=== PATIENT | male | born 1965 | race Caucasian/White ===

== ENCOUNTER 2017-11-11 14:20 | Emergency (ER) | payer BC ==
[~2017-11-11] VITALS: Ht 182.9 cm; Wt 81.6 kg
[2017-11-11 15:51] LABS: BILIRUBIN,URINE NEGATIVE (NEGATIVE); CLARITY,URINE CLEAR (CLEAR); COLOR,URINE YELLOW (YELLOW); KETONES,URINE NEGATIVE (NEGATIVE); LEUKOCYTE ESTERASE ,URINE NEGATIVE (NEGATIVE); NITRITE,URINE NEGATIVE (NEGATIVE); PROTEIN,URINE DIPSTICK NEGATIVE (NEGATIVE); URINE UROBILINOGEN 0.2 mg/dL (0.2 - 1)
[2017-11-11 16:10] LABS: BACTERIA,URINE FEW /HPF; EPITHELIAL CELLS,URINE RARE /LPF; RBC,URINE 0-5 /HPF (0-5)
--- NOTE | 2017-11-11 16:58 | Diagnostic Imaging Report ---
PROCEDURE:TESTICULAR ULTRASOUND and DUPLEX ULTRASOUND COMPARISON:None. INDICATIONS:LEFT UPPER TESTICULAR MASS TECHNIQUE: Cervantes-scale and color doppler images of the testicles and scrotal contents were obtained. Duplex imaging with spectral waveform analysis was performed of the testicular arteries and veins. FINDINGS: RIGHT SCROTUM: Testicle: 4.3 x 2.9 x 4.2 cm. Epididymal head: 0.9 x 1.5 x 1.8 cm. 1.1 x 0.5 x 0.9 cm and 0.9 x 0.7 x 0.8 cm right epididymal head cyst. Hydrocele: None. Varicocele: None. LEFT SCROTUM: Testicle: 3.4 x 3.6 x 4.4 cm. Epididymal head: 2.9 x 2.4 x 4.2 cm. 2.5 x 2.3 x 2.7 cm left epididymal head cysts/spermatocele, previously 2.0 x 1.5 x 2.6 cm. 2.1 x 1.8 x 2.1 cm left epididymal head cyst or spermatocele. 1.3 x 0.8 x 1.6 cm left epididymal body cyst/spermatocele. Hydrocele: None. Varicocele: None. CONCLUSION: Bilateral epididymal cysts and spermatoceles. Otherwise unremarkable ultrasound. Dictated by: Arnold Mcmillan M.D. on 11/11/2017 at 16:58 Electronically approved by: Arnold Mcmillan M.D. on 11/11/2017 at 16:58
--- NOTE | 2017-11-11 16:58 | Diagnostic Imaging Report ---
PROCEDURE:TESTICULAR DOPPLER ULTRASOUND COMPARISON:None. INDICATIONS:LEFT UPPER TESTICULAR MASS TECHNIQUE: Cervantes-scale and color doppler images of the testicles and scrotal contents were obtained. Duplex imaging with spectral waveform analysis was performed of the testicular arteries and veins. FINDINGS: Please see testicular ultrasound from the same day for combined dictation. CONCLUSION: Please see testicular ultrasound from the same day for combined dictation. Dictated by: Arnold Mcmillan M.D. on 11/11/2017 at 16:59 Electronically approved by: Arnold Mcmillan M.D. on 11/11/2017 at 16:59
== END 2017-11-11 20:13 | disposition home or self-care (01) ==
LOC: ER 14:20
DX: N50.89 Other specified disorders of the male genital organs (principal); N50.3 Cyst of epididymis; N43.40 Spermatocele of epididymis, unspecified
CPT/HCPCS: 76870; 81001; 93976; 99284

== ENCOUNTER → 2019-10-24 | Outpatient (CLI) | payer BC ==
[~2019-10-24] MED LIST: IOPAMIDOL 370 MG/ML 200 ML INFUS..BTL INJ ONE; SODIUM CHLORIDE 0.9% 250ML 250 ML ONE
--- NOTE | 2019-10-24 17:13 | Diagnostic Imaging Report ---
CT of the abdomen and pelvis, without and with contrast. History: Microscopic hematuria. Comparison: None available. Technique: Multidetector CT scanning of the abdomen and pelvis was performed from the level of the lung bases to the inferior pubic rami before and after intravenous administration of contrast according to the CT or protocol. Coronal, sagittal, and three-dimensional reformations were obtained. RADIATION DOSE: Total DLP: 1146.14 mGy*cm Dose modulation, iterative reconstruction, and/or weight based adjustment of the mA/kV was utilized to reduce the radiation dose to as low as reasonably achievable. FINDINGS: The visualized lung bases demonstrate no significant abnormalities. The imaged portion of the heart is unremarkable. The liver is normal in size and attenuation. A subcentimeter hypodensity is identified within the right hepatic lobe which is too small to definitively characterize. No other focal hepatic abnormality is identified. The gallbladder is unremarkable. There is no biliary ductal dilatation. There is a small hiatal hernia present. The stomach is otherwise unremarkable. The spleen, pancreas, and bilateral adrenal glands are unremarkable. The kidneys are normal in size and location and symmetrically enhance/excrete contrast material. There is no evidence for nephrolithiasis. There is a exophytic cyst identified arising off the inferior pole of the left kidney measuring up to 1.4 cm. There are additional subcentimeter hypodensities identified bilaterally which are to small to definitively characterize but likely represent cysts. There is no evidence for solid/enhancing mass. There is a single collecting system and ureter identified bilaterally. There is no evidence of a filling defect or other abnormality. The urinary bladder is unremarkable. The prostate demonstrates no significant abnormalities. The abdominal aorta is normal course and caliber with mild atherosclerotic calcifications. The IVC is unremarkable. The visualized loops of small large bowel demonstrate no evidence of obstruction or inflammation. There is no ascites or intraperitoneal free air. No abnormally enlarged lymph nodes are identified within the abdomen or pelvis. There is a small fat-containing umbilical hernia present. Small bilateral fat-containing inguinal hernias noted. The osseous structures demonstrate no evidence for acute fracture or destructive process. The extraperitoneal soft tissues are unremarkable. IMPRESSION: Unremarkable CT urogram without evidence for nephrolithiasis, hydronephrosis, solid renal mass, or other ureteral filling defect/abnormality. Small hiatal hernia. Signed by: Dr. Jorge L Britt MD on 10/24/2019 5:10 PM
== END ==
LOC: CT 13:57
PROVIDERS: ATTEND Urology
DX: R31.21 Asymptomatic microscopic hematuria (principal)
CPT/HCPCS: 74178; J7050; Q9967

== ENCOUNTER 2020-05-21 05:34 | Emergency (ER) | payer BC ==
[~2020-05-21] VITALS: Ht 182.9 cm; Wt 81.6 kg
--- NOTE | 2020-05-21 05:38 | Emergency Department Note ---
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 Complained of self limited R perioral numbness . . Historian: Patient Arrival Mode: Car Onset (how long ago): minute(s) (20) Location: R congregational Radiation: Reports non-radiation Severity: mild Onset quality: sudden Timing of current episode: constant Progression: partially resolved Chronicity: new Relieving factors: none Exacerbating factors: none Associated symptoms: Denies denies other symptoms, Denies confusion, Denies chest pain, Denies cough, Denies diaphoresis, Denies fever/chills, Denies headaches, Denies loss of appetite, Denies malaise, Denies nausea/vomiting, Denies rash, Denies seizure, Denies shortness of breath, Denies syncope, Denies weakness, Denies other Treatments prior to arrival: none (RUFUS FIGUEROA DO) Past Medical/Family History Physician Review I have reviewed the patient's past medical and family history. Any updates have been documented here. (RUFUS FIGUEROA DO) Past Medical History Recent Fever: No Clinical Suspicion of Infectio: No Past Medical History: None Past Surgical History: T&A (RUFUS FIGUEROA DO) Social History Smoking Cessation: Current some day smoker Counseling Performed: Yes Alcohol Use: None Any Illegal Drug Use: No (RUFUS FIGUEROA DO) Other Last Tetanus: UNKNOWN (RUFUS FIGUEROA DO) Review of Systems Review of Systems Constitutional: Reports no symptoms EENTM: Reports no symptoms Cardiovascular: Reports no symptoms Respiratory: Reports no symptoms Gastrointestinal: Reports no symptoms Genitourinary: Reports no symptoms Musculoskeletal: Reports no symptoms Integumentary: Reports no symptoms Neurological: Reports headache Psychological: Reports no symptoms Endocrine: Reports no symptoms Hematological/Lymphatic: Reports no symptoms (RUFUS FIGUEROA DO) Physical Exam Related Data Allergies: Coded Allergies: No Known Allergies (Unverified , 11/11/17) Vital signs reviewed: Yes (RUFUS FIGUEROA DO) Physical Exam CONSTITUTIONAL Constitutional: Present well-developed, Present well-nourished HENT HENT: Present normocephalic, Present atraumatic, Present oropharynx clear/moist, Present nose normal HENT L/R: Present left ext ear normal, Present right ext ear normal EYES Eyes: Reports PERRL, Reports conjunctivae normal NECK Neck: Present ROM normal PULMONARY Pulmonary: Present effort normal, Present breath sounds normal CARDIOVASCULAR Cardiovascular: Present regular rhythm, Present heart sounds normal, Present capillary refill normal, Present normal rate GASTROINTESTINAL Abdominal: Present soft, Present nontender, Present bowel sounds normal GENITOURINARY Genitourinary: Present exam deferred SKIN Skin: Present warm, Present dry MUSCULOSKELETAL Musculoskeletal: Present ROM normal NEUROLOGICAL Neurological: Present alert, Present oriented x 3, Present no gross motor or sensory deficits PSYCHOLOGICAL Psychological: Present mood/affect normal, Present judgement normal (RUFUS FIGUEROA DO) Assessment & Plan Medical Decision Making MDM diff dx : SAH, migraine, bells palsy, TIA, CVA (RUFUS FIGUEROA DO) MDM Ct head benign, labs benign. Symptoms are largely resolved. Doubt TIA or CVA. Doubt emergent process at this time. I discussed results patient as well as expected disease time course and management. They will follow up with their primary care provider or return to the emergency department for new or worsening symptoms. Patient's appropriate for discharge. Part of this note was dictated with Antoni and is subject to recognition errors. (RUBEN SIMPSON MD) Reassessment Reassessment time: 06:41 Reassessment Well appearing, NAD (RUBEN SIMPSON MD) Assessment & Plan Final Impression: (1) Headache (RUBEN SIMPSON MD) Depart Disposition: HOME, SELF-CARE RUFUS FIGUEROA DO May 21, 2020 05:38 RUBEN SIMPSON MD May 21, 2020 06:49
[2020-05-21] MEDS ORDERED: METHYLPREDNISOLONE SOD SUCC 125 MG/2ML VIAL IV STA (05:46)
[2020-05-21] MEDS ORDERED: KETOROLAC TROMETHAMINE 30 MG/ML VIAL IV STA (05:46)
[2020-05-21] MEDS ORDERED: SODIUM CHLORIDE 0.9% 1000ML 1,000 ML IV STA (05:46)
[2020-05-21] MEDS ORDERED: METOCLOPRAMIDE HCL 10 MG/2ML VIAL IV STA (05:46)
[2020-05-21] MEDS ORDERED: DIPHENHYDRAMINE HCL INJ 50 MG/ML VIAL IV STA (05:46)
--- OUTSIDE RECORDS SUMMARY | 2020-05-21 06:01 | XMS REPORT | Continuity of Care Document ---
Author Author [facility] t Organization [facility] Address [address] [place] [address] [address] [place] [address] Phone Unavailable Care Team Providers Care Disability Services Coordinator Name Role Phone Keyla YBARRA MD PCP INES ROMEO Attphys Unavailable MARIELLA MATA Attjonathan Unavailable Payers Payer Name Policy Type Policy Number Effective Date Expiration Date S edgardo [facility] [id number] 2008 00:00:00 [facility] Problems This patient has no known problems. Allergies, Adverse Reactions, Alerts This patient has no known allergies or adverse reactions. Medications This patient has no known medications. Procedures Procedure Date / Time Performed Performing Clinician [facility] e Dup-scan artl valeria abdl/pel/scrot&/RPR orgn lmt 2017-11-11 00 :00:00 [facility]RUFUS [facility] Testicular ultrasound 2017-11-11 00:00:00 [facility]RUFUS [facility] Encounters Start Date/Time End Date/Time Encounter Type Admission Type Attendi [facility] Care Department Encounter ID Source 2017-11-11 14:20:00 2017-11-11 20:13:00 Departed Emergency Room ER MARIELLA MATA [facility] [id number] [facility] Results Test Description Test Time Test Comments Results Result Comments Source CT ABDOMEN/PELVIS WOW 2019-10-24 16:28:00 [facility] [address] [place], [place] [address] Patient Name: DEANNE HEATON MR #: [id number] : 1965 Age/Sex: 54/M Req #: [id number] Adm Physician: Ordered by: INES ROMEO MD Report #: [id number] Location: CT Room/Bed: Procedure: [id number] CT/CT ABDOMEN/PELVIS WOW Exam Date: 10/24/19 Exam Time: 1535 REPORT STATUS: Signed CT of the abdomen and pelvis, without and with contrast. History: Microscopic hematuria. Comparison: None available. Technique: Multidetector CT scanning of the abdomen and pelvis was performed from the level of the lung bases to the inferior pubic rami before and after intravenous administration of contrast according to the CT or protocol. Coronal, sagittal, and three-dimensional reformations were obtained. RADIATION DOSE: Total DLP: 1146.14 mGy*cm Dose modulation, iterative reconstruction, and/or weight based adjustment of the mA/kV was utilized to reduce the radiation dose to as low as reasonably achievable. FINDINGS: The visualized lung bases demonstrate no significant abnormalities. The imaged portion of the heart is unremarkable. The liver is normal in size and attenuation. A subcentimeter hypodensity is identified within the right hepatic lobe which is too small to definitively characterize. No other focal hepatic abnormality is identified. The gallbladder is unremarkable. There is no biliary ductal dilatation. There is a small hiatal hernia present. The stomach is otherwise unremarkable. The spleen, pancreas, and bilateral adrenal glands are unremarkable. The kidneys are normal in size and location and symmetrically enhance/excrete contrast material. There is no evidence for nephrolithiasis. There is a exophytic cyst identified arising off the inferior pole of the left kidney measuring up to 1.4 cm. There are additional subcentimeter hypodensities identified bilaterally which are to small to definitively characterize but likely represent cysts. There is no evidence for solid/enhancing mass. There is a single collecting system and ureter identified bilaterally. There is no evidence of a filling defect or other abnormality. The urinary bladder is unremarkable. The prostate demonstrates no significant abnormalities. The abdominal aorta is normal course and caliber with mild atherosclerotic calcifications. The IVC is unremarkable. The visualized loops of small large bowel demonstrate no evidence of obstruction or inflammation. There is no ascites or intraperitoneal free air. No abnormally enlarged lymph nodes are identified within the abdomen or pelvis. There is a small fat-containing umbilical hernia present. Small bilateral fat-containing inguinal hernias noted. The osseous structures demonstrate no evidence for acute fracture or destructive process. The extraperitoneal soft tissues are unremarkable. IMPRESSION: Unremarkable CT urogram without evidence for nephrolithiasis, hydronephrosis, solid renal mass, or other ureteral filling defect/abnormality. Small hiatal hernia. Signed by: Dr. Jorge L Britt MD on 10/24/2019 5:10 PM Dictated By: JORGE L BRITT MD 09 Transcribed By: SEAN on 10/24/191709 COPY TO: INES ROMEO MD TESTICULAR 2019-09-15 10:43:00 [place] [address] Patient Name: DEANNE HEATON MR #: [id number] : 1965 Age/Sex: 54/M Req #: [id number] Adm Physician: Ordered by: INES ROMEO MD Report #: [id number] Location: Room/Bed: Procedure: [id number] US/US TESTICULAR Exam Date: 09/15/19 Exam Time: 1019 REPORT STATUS: Signed Testicular ultrasound, with Doppler examination. History: Spermatocele. Comparison: None available. Discussion: Evaluation of the scrotum was performed in the transverse and longitudinal planes. Color Doppler and spectral wave form analysis was pe rformed bilaterally. The testes are normal in size and echogenicity bilaterally, measuring 5.3 x 2.9 x 3.8 cm on the right and 5.1 x 2.9 x 3.9 cm on the left. There is no evidence of a mass. Normal and symmetrical flow is present within both testes. There is no evidence of hydrocele. Multiple oval circumscribed nearly anechoic structures are present within both epididymides. There are 2 on the right measuring 2.0 x 0.9 x 1.4 cm and 1.5 x 1.1 x 1.0 cm. There are at least 3 on the left, the largest measuring 5.2 x 2.5 x 3.7 cm and 2 others measuring 2.1 and 1.7 cm in maximal diameter. IMPRESSION: 1. Normal bilateral testes. 2. Multiple bilateral spermatoceles versus epididymal head cysts. Signed by: Rufus Reed on 09/15/2019 10:52 AM Dictated By: RUFUS REED MD 1231 Transcribed By: SEAN on 09/18/19 1231 COPY TO: INES ROMEO MD US TESTICULAR DOPPLER LTD 2019-09-15 10:43:00 [place] [address] Patient Name: DEANNE HEATON MR #: [id number] : 1965 Age/Sex: 54/M Req #: [id number] Adm Physician: Ordered by: INES ROMEO MD Report #: [id number] Location: Room/Bed: Procedure: [id number] US/US TESTICULAR DOPPLER LTD Exam Date: 09/15/19 Exam Time: 1019 REPORT STATUS: Signed Testicular ultrasound, with Doppler examination. History: Spermatocele. Comparison: None available. Discussion: Evaluation of the scrotum was performed in the transverse and longitudinal planes. Color Doppler and spectral wave form sridhar sis was performed bilaterally. The testes are normal in size and echogenicity bilaterally, measuring 5.3 x 2.9 x 3.8 cm on the right and 5.1 x 2.9 x 3.9 cm on the left. There is no evidence of a mass. Normal and symmetrical flow is present within both testes. There is no evidence of hydrocele. Multiple oval circumscribed nearly anechoic structures are present within both epididymides. There are 2 on the right measuring 2.0 x 0.9 x 1.4 cm and 1.5 x 1.1 x 1.0 cm. There are at least 3 on the left, the largest measuring 5.2 x 2.5 x 3.7 cm and 2 others measuring 2.1 and 1.7 cm in maximal diameter. IMPRESSION: 1. Normal bilateral testes. 2. Multiple bilateral spermatoceles versus epididymal head cysts. Signed by: Rufus Reed on 09/15/2019 10:52 AM Dictated By: RUFUS REED MD 1231 Transcribed By: SEAN on 09/18/19 1231 COPY TO: INES ROMEO MD Urine WBC 2017-11-11 16:10:00 Test Item Urine WBC (test code = 5821-4) NONE 0-5 [facility] [id number] 16:10:00* Test Item Value Reference Range Interpretation Comments Urine RBC (test code = 38940-5) 0-5 0-5 [facility] [id number] 16:10:00* Test Item Value Reference Range Interpretation Comments Urine Bacteria (test code = 03046-3) FEW NONE [facility] Epithelial [id number] 16:10:00 * Test Item Value Reference Range Interpretation Comments Urine Epithelial Cells (test code = 09984-6) RARE NONE [facility] [id number] 16:08:00* Test Item Value Reference Range Interpretation Comments Urine Color (test code = 5778-6) YELLOW YELLOW [facility] [id number] 16:08:00* Test Item Value Reference Range Interpretation Comments Urine Clarity (test code = 38648-4) CLEAR CLEAR [facility] Specific [id number] 16:08:00 * Test Item Value Reference Range Interpretation Comments Urine Specific [place] (test code = 5811-5) 1.015 1.010-1.02 5 [facility] [id number] 16:08:00* Test Item Value Reference Range Interpretation Comments Urine pH (test code = 63199-7) 6.5 5-7 [facility] Leukocyte [id number] 16:08:00* Test Item Value Reference Range Interpretation Comments Urine Leukocyte Esterase (test code = 5799-2) NEGATIVE NEGATIVE [facility] [id number] 16:08:00* Test Item Value Reference Range Interpretation Comments Urine Nitrite (test code = 37823-0) NEGATIVE NEGATIVE [facility] [id number] 16:08:00* Test Item Value Reference Range Interpretation Comments Urine Protein (test code = 5804-0) NEGATIVE NEGATIVE [facility] Glucose (UA)2017-11-11 16:08:00* Test Item Value Reference Range Interpretation Comments Urine Glucose (UA) (test code = 2349-9) NEGATIVE NEGATIVE [facility] [id number] 16:08:00* Test Item Value Reference Range Interpretation Comments Urine Ketones (test code = 98502-8) NEGATIVE NEGATIVE [facility] [id number] 16:08:00* Test Item Value Reference Range Interpretation Comments Urine Urobilinogen (test code = 15056-5) 0.2 0.2-1 [facility] [id number] 16:08:00* Test Item Value Reference Range Interpretation Comments Urine Bilirubin (test code = 1978-6) NEGATIVE NEGATIVE [facility] [id number] 16:08:00* Test Item Value Reference Range Interpretation Comments Urine Blood (test code = 05550-2) 1+ NEGATIVE [facility] [place] [address] Patient Name: DEANNE HEATON MR #: [id number] : 1965 Age/Sex: 52/M Req #: [id number] Adm Physician: Ordered by: RUFUS HEALY NP Report #: [id number] Location: ER Room/Bed: Procedure: [id number] US/US TESTICULAR Exam Date: Exam Time: REPORT STATUS: Signed PROCEDURE: TESTICULAR ULTRASOUND and DUPLEX ULTRASOUND COMPARISON: None. INDICATIONS: LEFT UPPER TESTICULAR MASS TECHNIQUE: Cervatnes-scale and color doppler images of the testicles and scrotal contents were obtained. Duplex imaging with spect ral waveform analysis was performed of the testicular arteries and veins. FINDINGS: RIGHT SCROTUM: Testicle: 4.3 x 2.9 x 4.2 cm. Epididymal head: 0.9 x 1.5 x 1.8 cm. 1.1 x 0.5 x 0.9 cm and 0.9 x 0.7 x 0.8 cm right epi didymal head cyst. Hydrocele: None. Varicocele: None. LEFT SCROTUM: Testicle: 3.4 x 3.6 x 4.4 cm. Epididymal head: 2.9 x 2.4 x 4.2 cm. 2.5 x 2.3 x 2.7 cm left epididymal head cysts/spermatocele, previously 2.0 x 1.5 x 2.6 c m. 2.1 x 1.8 x 2.1 cm left epididymal head cyst or spermatocele. 1.3 x 0.8 x 1.6 cm left epididymal body cyst/spermatocele. Hydrocele: None. Varicocel e: None. CONCLUSION: Bilateral epididymal cysts and spermatocel es. Otherwise unremarkable ultrasound. Dictated by: Kierra Martinez M.D. on at 16:58 Electronically approved by: Kierra Martinez M.D. on 11/11/2017 at 16:58 Dictated By: KIERRA MARTINEZ MD 57 Transcribed By: BREANN on 11/11/171657 COPY TO: RUFUS HEALY NP TESTICULAR DOPPLER LTD [place] [address] Patient Name: DEANNE HEATON MR #: [id number] : 1965 Age/Sex: 52/M Req #: [id number] Adm Physician: Ordered by: RUFUS HEALY NP Report #: [id number] Location: ER Room/Bed: Procedure: [id number] US/US TESTICULAR DOPPLER LTD Exa m Date: Exam Time: REPORT STATUS: Signed P ROCEDURE: TESTICULAR DOPPLER ULTRASOUND COMPARISON: None. INDICATIONS: LEFT UPPER TESTICULAR MASS TECHNIQUE: Cervantes-scale and color doppler images of the testicles and scrotal contents were obtained. Duplex imaging with spectra l waveform analysis was performed of the testicular arteries and veins. FINDINGS: Please see testicular ultrasound from the same day for combined dictation. CONCLUSION: Please see testicular ultrasound from the same day for combined dictation. Dictated by: Kierra Martinez M.D. on 11/11/2017 at 16:59 Electronically approved by: Kierra Martinez M.D. on 8 at 16:59 Dictated By: KIERRA MARTINEZ MD 58 Transcribed By: BREANN on 11/11/171658 COPY TO: RUFUS HEALY NP
[2020-05-21 06:02] LABS: BASOPHILS # (AUTO) 0.1 (0.0-0.1); BASOPHILS % 0.7 % (0.0-1.0); EOSINOPHILS # (AUTO) 0.3 (0.0-0.4); EOSINOPHILS % 2.4 % (0.0-6.0); HEMATOCRIT 46.2 % (38.2-49.6); HEMOGLOBIN 15.5 g/dL (14.0-18.0); LYMPHOCYTES % 17.2 % (18.0-39.1); MEAN CORPUSCULAR HEMOGLOBIN 31.6 pg (28-32); MEAN CORPUSCULAR HGB CONC 33.5 g/dL (31-35); MEAN CORPUSCULAR VOLUME 94.3 fL (81-99); MONOCYTES # (AUTO) 0.8 (0.2-0.8); MONOCYTES % 7.3 % (4.4-11.3); NEUTROPHILS # (AUTO) 8.2 (2.1-6.9); NEUTROPHILS % 71.9 % (38.7-80.0); PLATELET COUNT 197 x10e3/uL (140-360); RED CELL DISTRIBUTION WIDTH 12.9 % (11.7-14.4)
[2020-05-21 06:19] LABS: ALBUMIN 4.3 g/dL (3.5-5.0); ALBUMIN/GLOBULIN RATIO 1.4 (0.8-2.0); ANION GAP 13.8 mmol/L (8-16); CALCIUM 9.6 mg/dL (8.4-10.2); CREATININE, SERUM 1.25 mg/dL (0.72-1.25); POTASSIUM 3.8 mmol/L (3.5-5.1)
[2020-05-21 06:25] LABS: CREATINE KINASE MB 2.4 ng/mL (0-5.0)
--- NOTE | 2020-05-21 06:37 | Diagnostic Imaging Report ---
Examination: CT BRAIN WO CONTRAST History:Temporal headaches and dizziness. Comparison studies:None Technique: Axial images were obtained from the skull base to the vertex. Coronal and sagittal images reconstructed from the axial data. Dose modulation, iterative reconstruction, and/or weight based adjustment of the mA/kV was utilized to reduce the radiation dose to as low as reasonably achievable. Intravenous contrast: None Findings: Scalp: No abnormalities. Bones: No fractures, blastic or lytic lesions. Brain sulci: Appropriate for age. Ventricles: Normal in size and configuration. No hydrocephalus. Extra-axial space: No abnormalities. Parenchyma: No abnormal densities. No masses, hemorrhage, or acute or chronic cortical based vascular insults.. Sellar/suprasellar region: No abnormalities. Craniocervical junction: Patent foramen magnum. No Chiari one malformation. Incidental findings: None. Impression: No intracranial abnormalities. Signed by: Dr. Yuki Wilkinson M.D. on 05/21/2020 6:33 AM
[2020-05-21 07:00] VITALS: BP 121/93
[2020-05-21] MEDS ORDERED: ASPIRIN 325 MG TAB PO ONE (07:00)
[2020-05-21] MEDS ORDERED: ASPIRIN 325 MG TAB ONE (07:05)
== END 2020-05-21 07:08 | disposition home or self-care (01) ==
LOC: ER 05:40
DX: R51.9 Headache, unspecified (principal); F17.210 Nicotine dependence, cigarettes, uncomplicated
CPT/HCPCS: 36415; 70450; 80053; 82550; 82553; 84484; 85025; 93005; 99284; J7030